=== PATIENT | female | born 1945 | race African-American/Black ===

== ENCOUNTER → 2021-07-31 | Outpatient (CLI) | payer MEDICARE ==
--- NOTE | 2021-07-31 14:31 | NUR ---
Pt to MRI for brain MRI. Pt has [employer] pacemaker, rep here to reprogram for procedure. Pt alert and oriented x 3, BP, O2 sat, HR stable throughout scan, tolerated without difficulty. Pacemaker returned to appropriate settings by rep and pt home with family. ENE MAYBERRY
--- NOTE | 2021-08-01 09:40 | RAD ---
MRI BRAIN WO Date: 07/31/2021 1:29 PM Indication: altered mental status Comparison: CT head 07/23/2021. Technique: Multiplanar multisequence MRI of the brain was performed without intravenous contrast usin g the standard protocol. Findings: No acute infarct. No acute hemorrhage. The ventricles are normal in size and configuration without hy drocephalus. Moderate scattered FLAIR hyperintensities in the subcortical and periventricular deep wh ite matter, a nonspecific finding, most commonly seen with chronic small vessel ischemic disease. Mod erate generalized cerebral volume loss. The scalp and calvarium are normal. Empty sella. No Chiari malformation. Mild incompletely characteri zed degenerative spondylosis of the visualized upper cervical spine. The visualized orbits and globes are normal. The visualized paranasal sinuses are clear. The mastoid air cells are clear. Normal flow voids within the vertebral, basilar, and internal carotid arteries indicating patency. IMPRESSION: 1. No acute intracranial process. 2. Moderate chronic small vessel ischemic disease and moderate cerebral volume loss. Electronically signed by: Clyde Richey MD (08/01/2021 9:38 AM) [id number]
== END ==
LOC: MRI 12:51
PROVIDERS: ATTEND Internal Medicine
DX: I67.82 Cerebral ischemia (principal); G93.89 Other specified disorders of brain; R41.82 Altered mental status, unspecified; M47.812 Spondylosis without myelopathy or radiculopathy, cervical region
CPT/HCPCS: 70551